=== PATIENT | male | born 1985 | race Hispanic/Latino ===

== ENCOUNTER 2020-08-09 17:04 | Emergency (ER) | payer OTHER, MEDICAID, SELFPAY ==
--- NOTE | 2020-08-09 17:08 | DI.RAD.S_ITS ---
PROCEDURE: XR CHEST 1V INDICATIONS: chest pain TECHNIQUE: One view of the chest was acquired. COMPARISON: None. FINDINGS: Surgical changes and devices: None. Lungs and pleura: Lungs are clear. No pleural effusions or pneumothorax. Mediastinum: Mediastinal contours appear normal. Heart size is normal. Bones and chest wall: No suspicious bony lesions. Overlying soft tissues appear unremarkable. IMPRESSION: No evidence acute pulmonary process. Dictated by: Marquez Curran M.D. on 08/09/2020 at 17:40 Approved by: Marquez Curran M.D. on 08/09/2020 at 17:40
[2020-08-09 17:09] VITALS: BP 131/85; PULSE 88; RESP 22; TEMP 36.8; O2SAT 97
[2020-08-09 17:11] VITALS: PULSE 75; RESP 15; O2SAT 98
[2020-08-09 17:19] LABS: Add Manual Diff / Slide Review NO; Basophils Absolute Auto 100 /uL (0-100); Basophils Percent Auto 0.7 % (0-2); Eosinophils Absolute Auto 300 /uL (0-450); Eosinophils Percent Auto 3.3 % (2-4); Hematocrit 45.3 % (41-53); Hemoglobin 15.3 g/dL (13.5-17.5); Lymphocytes Absolute Auto 2500 /uL (1100-4500); Lymphocytes Percent Auto 25.1 % (25-40); Mean Corpuscular HGB Conc 33.8 % (30-36); Mean Corpuscular Hemoglobin 29.9 PG (26-34); Mean Corpuscular Volume 88.3 fL (80-100); Monocytes Absolute Auto 800 /uL (0-900); Monocytes Percent Auto 8.3 % (3-14); Neutrophils Absolute Auto 6300 /uL (1500-7000); Neutrophils Percent Auto 62.6 % (50-75); Platelet Count 279 X10^3/uL (150-400); Red Blood Cell Count 5.13 X10^6/uL (4.5-5.9); Red Cell Distribution Width 14.3 % (11.6-14.8); White Blood Cell Count 10.1 X10^3/uL (4.5-11.0)
[2020-08-09 17:30] VITALS: PULSE 80; RESP 20; O2SAT 97
[2020-08-09 17:45] LABS: Alanine Aminotransferase 35 IU/L (<50); Albumin 4.4 g/dL (3.5-5.0); Albumin Globulin Ratio 1.1 (1.0-2.8); Alkaline Phosphatase 104 U/L (38-126); Aspartate Aminotransferase 27 IU/L (17-59); BUN Creatinine Ratio 15.2 (6-22); Bilirubin Total 0.5 mg/dL (0.2-1.3); Blood Urea Nitrogen 14 mg/dL (9-20); Calcium 9.5 mg/dL (8.4-10.2); Carbon Dioxide 26 mmol/L (22-32); Chloride 106 mmol/L (98-107); Creatine Kinase 117 U/L (55-170); Estimated Glomerular Filt Rate > 60.0 mL/min (>60); Glucose 104 mg/dL (70-100); HEMOLYSIS < 15 (0-50); Lipase 31 U/L (23-300); Potassium 4.2 mmol/L (3.4-5.1); Sodium 141 mmol/L (137-145); Total Protein 8.4 g/dL (6.3-8.2)
[2020-08-09 17:57] LABS: Troponin I < 0.012 ng/mL (0.01-0.034)
[2020-08-09 18:00] VITALS: PULSE 69; RESP 17; O2SAT 97
[2020-08-09 18:00] LABS: CKMB % Relative Index 0.9 % (1.5-5.0); Creatine Kinase MB 1.07 ng/mL (<2.37)
--- NOTE | 2020-08-09 18:04 | ED.CHESTPAIN ---
HPI - Chest Pain General Chief Complaint: Chest Pain Stated Complaint: Chest pain, sent by [facility] Time Seen by Provider: 08/09/20 17:12 Source: patient Mode of arrival: Ambulatory Limitations: no limitations History of Present Illness HPI narrative: This is a 34-year-old male with history of tobacco abuse and asthma who comes emergency department for left-sided thoracic back pain. Patient was seen at walk-in clinic and sent her for evaluation. Patient states that yesterday he was playing ?[employer]? and was doing a lot of bending over picking up duffy bags and standing up and throwing them which is atypical. He woke up at 3:00 a.m. with pain on the left thoracic posterior chest wall just adjacent to the spine. Patient states his pain is worse with movement. He has not taken anything such as [id number]-gvzkwaa pain medications. He states that it is painful if he coughs or sneezes or takes a big breath. He denies any fevers or chills. He denies any cold cough or congestion. He denies any shortness of breath. He denies any anterior chest pain. Patient denies any nausea or vomiting. He denies any diaphoresis. He denies any changes to bowel movements or urination. Denies any black or bloody stools. He states that he quit smoking last night as well as quit alcohol last night. He also states that he does not have any known cardiac, pulmonary embolic history and any family members except for his grandfather. Patient states he has not had similar symptoms in the past. Related Data Previous Rx's Medication Instructions Recorded albuterol sulfate 2 inh INHALATION Q4H PRN #1 ea 08/09/20 ibuprofen 600 mg PO Q6H PRN #30 tab 08/09/20 lidocaine 1 patch TOPICAL DAILY PRN #15 ea 08/09/20 Allergies Allergy/AdvReac Type Severity Reaction Status Date / Time No Known Drug Allergies Allergy Unverified 08/09/20 15:54 Review of Systems Review of Systems ROS Unobtainable: All systems reviewed & are unremarkable except as noted in HPI and below Patient History Medical History Asthma Social History (Updated 08/09/20 @ 18:26 by Tamia Abrams DO) Smoking Status: Current every day smoker alcohol intake: current substance use type: does not use Smoking Status: Current every day smoker tobacco type: cigarettes Exam Narrative Exam Narrative: GENERAL: Alert and oriented x three, is obese male in uide-ce-byqhozga distress. HEENT: Head normocephalic, atraumatic, EOMI, pupils reactive, face symmetric, moist mucous membranes NECK: Supple, full range of motion CARDIOVASCULAR: Regular rate and rhythm without murmurs, rubs or gallops. RESPIRATORY: Breath sounds equal bilaterally, no wheezes rales or rhonchi. ABDOMEN: Soft, nontender. Normoactive bowel sounds all 4 quadrants. No guarding or rebound, rigidity, no mass : No CVA tenderness BACK: No cervical, thoracic or lumbar vertebral point tenderness. Patient does not have tenderness on palpation of thoracic back but has discomfort with movement. He has some muscle tightness noted. Patient has increased pain with flexion, extension, rotation and side bending. Muscle strength is 5/5 in upper and lower extremities, neurovascularly intact. EXTREMITIES: Normal range of motion, no clubbing or edema. Neurovascularly intact NEUROLOGICAL: Cranial nerves II through XII grossly intact. Moving all extremities SKIN: Warm, dry, no petechiae, no rashes or lesions. Initial Vital Signs Initial Vital Signs: Vital Signs Temperature 98.2 F 08/09/20 17:09 Pulse Rate 88 08/09/20 17:09 Respiratory Rate 22 08/09/20 17:09 Blood Pressure 131/85 08/09/20 17:09 Pulse Oximetry 97 08/09/20 17:09 Scores HEART Score Heart Score history: Slightly Suspicious Heart Score EKG: Normal Heart Score Age: < 45 years old Heart Score risk factors: No known risk factors Heart Score troponin: < or = to normal limit Heart Score Total: 0 Course Orders Ordered: ED Orders 08/09/20 17:08 XR chest 1V Stat EKG-12 Lead Stat 08/09/20 17:12 Complete Blood Count AUTO DIFF Stat Comprehensive Metabolic Panel Stat Lipase Stat Troponin & CK Cardiac Panel Stat Vital Signs Vital signs: Vital Signs - 8 hr 08/09/20 17:09 08/09/20 17:11 08/09/20 17:30 Temperature 98.2 F Pulse Rate 88 75 80 Respiratory Rate 22 15 20 Blood Pressure 131/85 Pulse Oximetry 97 98 97 08/09/20 18:00 Temperature Pulse Rate 69 Respiratory Rate 17 Blood Pressure Pulse Oximetry 97 MDM - Chest Pain Lab Data Attestation: I reviewed the patient's lab results. Result diagrams: 08/09/20 17:12 08/09/20 17:12 Labs: Lab Results 08/09/20 08/09/20 Range/Units 17:12 17:12 WBC 10.1 (4.5-11.0) X10^3/uL RBC 5.13 (4.5-5.9) X10^6/uL Hgb 15.3 (13.5-17.5) g/dL Hct 45.3 (41-53) % MCV 88.3 (80-100) fL MCH 29.9 (26-34) PG MCHC 33.8 (30-36) % RDW 14.3 (11.6-14.8) % Plt Count 279 (150-400) X10^3/uL Neut % (Auto) 62.6 (50-75) % Lymph % (Auto) 25.1 (25-40) % Montgomery % (Auto) 8.3 (3-14) % Eos % (Auto) 3.3 (2-4) % Baso % (Auto) 0.7 (0-2) % Neut # (Auto) 6300 (3283-0861) /uL Lymph # (Auto) 2500 (3106-5501) /uL Montgomery # (Auto) 800 (0-900) /uL Eos # (Auto) 300 (0-450) /uL Baso # (Auto) 100 (0-100) /uL Sodium 141 (137-145) mmol/L Potassium 4.2 (3.4-5.1) mmol/L Chloride 106 (98-107) mmol/L Carbon Dioxide 26 (22-32) mmol/L BUN 14 (9-20) mg/dL Creatinine 0.92 (0.66-1.25) mg/dL Estimated GFR > 60.0 (>60) mL/min BUN/Creatinine Ratio 15.2 (6-22) Glucose 104 H (70-100) mg/dL Calcium 9.5 (8.4-10.2) mg/dL Total Bilirubin 0.5 (0.2-1.3) mg/dL AST 27 (17-59) IU/L ALT 35 (<50) IU/L Alkaline Phosphatase 104 (38-126) U/L Total Creatine Kinase 117 (55-170) U/L CK-MB (CK-2) 1.07 (<2.37) ng/mL CK-MB (CK-2) Rel Index 0.9 L (1.5-5.0) % Troponin I < 0.012 (0.01-0.034) ng/mL Total Protein 8.4 H (6.3-8.2) g/dL Albumin 4.4 (3.5-5.0) g/dL Globulin 4.0 (1.7-4.1) g/dL Albumin/Globulin Ratio 1.1 (1.0-2.8) Lipase 31 (23-300) U/L Imaging Data Chest x-ray: Radiologist's Impression: [address] [id number] ReportSigned Patient: Gisela Lin#: [id number]: 1985Acct:[id number]/Sex: 34 / MDate of Service: 08/09/20Loc: EDAccession Number: [id number] Procedure: XR chest 1V Ordering Provider: Pipe Nguyen D.O. PROCEDURE: XR CHEST 1V INDICATIONS: chest pain TECHNIQUE: One view of the chest was acquired. COMPARISON: None. FINDINGS: Surgical changes and devices: None. Lungs and pleura: Lungs are clear. No pleural effusions or pneumothorax. Mediastinum: Mediastinal contours appear normal. Heart size is normal. Bones and chest wall: No suspicious bony lesions. Overlying soft tissues appear unremarkable. IMPRESSION: No evidence acute pulmonary process. Dictated by: Marquez Curran M.D. on 08/09/2020 at 17:40 Approved by: Marquez Curran M.D. on 08/09/2020 at 17:40 ECG Data Attestation: I personally reviewed and interpreted this ECG as follows: Prior ECG tracings: not available for review Interpretation: NSR, rate of 75, VT 186, qrs 90, QTc 415. No ST elevation or depression. MDM Narrative Medical decision making narrative: This is a 34-year-old male with acute onset of thoracic back pain after physical activity which patient does not usually participate in. Patient defers any pain medications here in the department. He was sent from the walk-in clinic he does have a history of tobacco abuse and obesity but no other known cardiac risk factors. Patient EKG, chest x-ray and lab work do not show any acute changes. He does not have any other high risk for suspicious factors for cardiac, pulmonary embolic causes and with his significant pain with movement I suspect this is more musculoskeletal. Discussed with patient plan for prescription for lidocaine patches, ibuprofen as needed patient did request a refill of his albuterol which she has run out of. He has not been needing it lately but is unavailable to him. Discharge Plan Departure Patient Disposition: Home Clinical Impression: Acute thoracic back pain Qualifiers: Back pain laterality: left Qualified Code(s): M54.6 - Pain in thoracic spine Instructions: DI for Thoracic Back Pain Activity Restrictions/Additional Instructions: Follow up with primary care if you continue to have symptoms. You may use lidocaine patch to affected area once daily. Remove patch and replace prior to next use. You may take ibuprofen up to 600 mg every 6 hours as needed for pain Prescription sent to [facility] in [place] Please return for fevers greater 100.4 F, rapidly worsening pain, lightheadedness or passing out, new pain radiating to your chest, abdomen, new chest pain or pressure, shortness of breath, persistent vomiting, black or bloody stools or other new or concerning symptoms. Prescriptions: New albuterol sulfate 90 mcg/actuation aerosol powdr breath activated 2 inh inhalation Q4H PRN (Reason: shortness of breath or wheezing) Qty: 1 RF: 0 lidocaine 5 % adhesive patch,medicated 1 patch topical DAILY PRN (Reason: pain) Qty: 15 RF: 0 ibuprofen 600 mg tablet 600 mg PO Q6H PRN (Reason: pain) Qty: 30 RF: 0
== END 2020-08-09 18:28 | disposition home or self-care (01) ==
PROVIDERS: Emergency Medicine; Emergency Provider Emergency Medicine
DX: M54.6 Pain in thoracic spine (principal); R07.9 Chest pain, unspecified
CPT/HCPCS: 36415; 71045; 80053; 82550; 82553; 83690; 84484; 85025; 93005; 99283; 99284